=== PATIENT | female | born 1985 | race Caucasian/White ===

== ENCOUNTER 2018-11-16 22:57 | Emergency (ER) | payer OTHER ==
[~2018-11-16] VITALS: Ht 160 cm; Wt 74.8 kg
[2018-11-16 23:28] LABS: BASOPHILS 0.3 % (0.0-2.0); EOSINOPHILS 1.6 % (0.0-3.0); HEMATOCRIT 46.1 % (37.0-47.0); HEMOGLOBIN 15.6 gm/dL (12.0-15.0); MCHC 33.8 g/dL (28.0-37.0); MCV 82.9 fL (80.0-100.0); MONOCYTES 3.6 % (1.0-8.0); PLATELET COUNT 377 thou/uL (150-400); POLYS 87.5 % (36.0-66.0); RBC 5.55 mil/uL (4.20-5.00); RDW 14.2 % (10.5-14.5); WBC 12.6 thou/uL (4.0-11.0)
[2018-11-16] MEDS ORDERED: NOHOMEMEDICATIONS (23:33)
[2018-11-16 23:37] LABS: CALCIUM 9.5 mg/dL (8.5-10.1); CREATININE 0.7 mg/dL (0.6-1.0); POTASSIUM 3.5 mmol/L (3.5-5.1)
[2018-11-16 23:45] LABS: ALBUMIN 4.2 g/dL (3.4-5.0); TOTAL BILIRUBIN 0.6 mg/dL (<0.1-1.0); TOTAL PROTEIN 8.5 g/dL (6.4-8.2)
[2018-11-16] MEDS ORDERED: PEPCID40 MG PO (23:53)
[2018-11-16] MEDS ORDERED: ONDANSETRON HCL4 M2 PO (23:53)
[2018-11-16] MEDS ORDERED: BENTYL 20 MG TA20 M1 PO (23:53)
[2018-11-17 00:35] LABS: URINE BILIRUBIN NEGATIVE (Negative); URINE BLOOD 1+ (Negative); URINE CLARITY CLEAR; URINE COLOR YELLOW; URINE GLUCOSE-RANDOM* NEGATIVE (Negative); URINE KETONES 2+ (Negative); URINE LEUKOCYTES-REFLEX NEGATIVE (Negative); URINE NITRITE-REFLEX NEGATIVE (Negative); URINE PROTEIN (DIPSTICK) TRACE (Negative); URINE SPECIFIC GRAVITY >= 1.030 (1.005-1.035); URINE UROBILINOGEN 0.2 E.U./dl (0.2-1.0)
[2018-11-17 01:00] VITALS: BP 115/68
[2018-11-17 01:03] LABS: BACTERIA-REFLEX 1-9 Few /HPF (None Seen); CASTS None Seen /LPF (None Seen); CRYSTALS None Seen /LPF (None Seen); MUCUS 4-6 Moderate strn/LPF (None Seen); SQUAMOUS 4-10 Moderate /LPF (0-3); URINE RBC 3-10 Few /HPF (0-2); URINE WBC-REFLEX 0-5 Rare /HPF (0-5)
== END 2018-11-17 01:25 | disposition home or self-care (01) ==
LOC: ER 22:57
PROVIDERS: Emergency Medicine
DX: R11.2 Nausea with vomiting, unspecified (principal); R19.7 Diarrhea, unspecified; R10.10 Upper abdominal pain, unspecified; F17.210 Nicotine dependence, cigarettes, uncomplicated